=== PATIENT | female | born 1955 | race African-American/Black ===

== ENCOUNTER 2019-11-20 17:01 | IRF | payer MEDICARE, SELFPAY ==
--- NOTE | 2019-11-20 18:28 | ADMGEN ---
This patient, Irma oTrres, was admitted to [facility] Room 230-01. Patient/family oriented to hospital policies and general routines including ID bracelet, bed and alarms, visiting hours, pain management, procedures, bathroom and other care routines, personal items, smoking policy, room service/diet, and visiting hours. Valuables list has been completed. Information on how to activate the Rapid Response Team has been discussed. Patient/Family are encouraged to report perceived risks to care and to ask questions if they do not understand what they are told or what they should do.
[2019-11-20 19:22] VITALS: BP 149/83; PULSE 98; RESP 19; TEMP 37; O2SAT 94; BMI 17.2
[2019-11-20 20:22] VITALS: PULSE 88
[2019-11-20] MEDS: ACETAMINOPHEN 325 MG TABLET 650 MG PO ×2 (20:22→23:03)
[2019-11-20] MEDS: METOPROLOL TARTRATE 25 MG TABLET PO (20:22)
[2019-11-20] MEDS: GABAPENTIN 100 MG CAPSULE PO (20:22)
[2019-11-20] MEDS: SODIUM CHLORIDE 1 GM TABLET PO (20:22)
[2019-11-20] MEDS: PRAVASTATIN SODIUM 20 MG TABLET 40 MG PO (20:23)
[2019-11-20 22:00] VITALS: BP 160/83; PULSE 105; RESP 20; TEMP 36.9; O2SAT 97
[2019-11-20] MEDS: TRAMADOL HCL 50 MG TABLET PO (23:04)
--- NOTE | 2019-11-20 23:35 | PC.NURSE ---
confused, disoriented, disruptive, has attempted to get out of bed setting alarm off freq, unable to redirest, has had pain meds, now getting more agitated, telling staff to leave her alone and get oiut of room, warehouse processor notified, dr deng notified, orders for ativan im 1x only
[2019-11-21] MEDS: LORAZEPAM INJ 2 MG/ML VIAL IM (00:05)
--- NOTE | 2019-11-21 00:08 | PC.NURSE ---
ativan 2 mg im, still agitated, media reporter 1 on 1
--- NOTE | 2019-11-21 00:32 | PC.NURSE ---
calling sister alexander on phone to come get her, transport coordinator still 1 on 1, pt calmer, sitting at bedside, sister is telling pt to go to sleep
--- NOTE | 2019-11-21 01:08 | PC.NURSE ---
asleep, no distress, this rn at bedside
--- NOTE | 2019-11-21 01:57 | PC.NURSE ---
still asleep, staff at bedside for safety
--- NOTE | 2019-11-21 04:29 | PC.NURSE ---
still asleep, lab here- will come back around breakfast to draw routine cbc and bmp, staff at bedside
[2019-11-21] MEDS: ACETAMINOPHEN 325 MG TABLET 650 MG PO ×3 (05:07→17:10)
[2019-11-21 06:01] VITALS: BP 145/98; PULSE 102; RESP 18; TEMP 36.7; O2SAT 95
--- NOTE | 2019-11-21 06:13 | PC.NURSE ---
asleep, allowed lab to draw blood for testing
[2019-11-21 06:35] LABS: Basophils Absolute Auto 0.1 K/mm3 (0.0-0.1); Basophils Percent Auto 0.7 % (0.2-1.2); Eosinophils Absolute Auto 0.1 K/mm3 (0-0.3); Eosinophils Percent Auto 0.6 % (0-4.4); Hematocrit 22.2 % (37.0-47.0); Hemoglobin 7.1 g/dL (12.0-15.0); Immature Granulocyte Absolute 0.07 K/mm3 (0.00-0.031); Immature Granulocyte Percent A 0.8 % (0-0.5); Lymphocytes Absolute Auto 2.08 K/mm3 (0.9-3.2); Lymphocytes Percent Auto 24.6 % (18.3-44.2); Mean Corpuscular Hemoglobin 30.2 pg (26-34); Mean Corpuscular Volume 94.5 fl (80-100); Mean Platelet Volume 9.2 fl (7.4-10.4); Monocytes Absolute Auto 0.6 K/mm3 (0.1-0.6); Monocytes Percent Auto 6.8 % (2.6-8.5); Neutrophils Absolute Auto 5.6 K/mm3 (1.3-6.7); Neutrophils Percent Auto 66.5 % (45.5-73.1); Platelet Count Result 537 k/mm3 (150-375); Red Blood Count 2.35 M/mm3 (4.2-5.4); White Blood Count 8.4 K/mm3 (4.5-10.0)
[2019-11-21 06:40] LABS: Blood Urea Nitrogen 18 mg/dL (7-17); Carbon Dioxide 35 mmol/L (22-30); Chloride 99 mmol/L (98-107); Estimated CRCL calculation 71 ml/min; Estimated Glomerular Filt Rate > 60; Glucose 95 mg/dL (65-105); Potassium 3.1 mmol/L (3.4-5.0); Sodium 136 mmol/L (137-145)
[2019-11-21 08:00] VITALS: PULSE 90; RESP 18; O2SAT 95
--- NOTE | 2019-11-21 10:00 | WPDREHABHP ---
H&P: HPI History of Present Illness Chief complaint: BKA Narrative: Irma Torres is a 64 year old female HISTORY OF PRESENT ILLNESS: The patient's primary rehab impairment category is amputation/lower extremity The etiologic diagnosis is severe peripheral vascular disease I saw this patient [id number] on November 21, 2019 at 10:00 a.m. The patient is a 64-year-old the Afro [place] woman with a past medical history of hypertension, hyperlipidemia, tobacco use and left to right cardiac shunt who was recently hospitalized for critical limb ischemia of the right lower extremity. She underwent the right SFA and popliteal balloon angioplasty and October 31, 2019. She presented to [facility] on November 16, 2019 with worsening right foot edema, pain and skin changes. Vascular surgery was consulted and she was noted to have dry gangrene of the right foot with no secondary sign of infection aside from leukocytosis. Her aspirin Flexeril held and she was scheduled for amputation. She underwent the right [id number] amputation November 17, 2019. Postoperatively she experienced acute postoperative pain, hypertension, acute blood-loss anemia, and impaired mobility. Her postoperative pain is being treated with oral pain medication and will be adjusted meet her needs. Hypertension with oral antihypertensives, hemodynamically stable with the current hemoglobin of 8.3 however it has gone down to 7.1 here. She was receiving PT OT to improve mobility and independence with the ADLs and functional transverse. There is an incisional wound VAC to the right lower extremity stump. She is nonweightbearing to the right lower extremity DVT prophylaxis with subcutaneous heparin however it seems like that the referring hospital has discontinued the heparin prior to her coming to us. Therapy was initiated at the acute care facility and the patient transferred to us from [facility] on November 20, 2019 on FALLS OR SURGERIES: The patient has had major surgeries in the 100 days prior to admission. They had no falls in the past year. They had no falls with injury in the past year. PAST MEDICAL HISTORY: hypertension, weight loss, hyperlipidemia PAST SURGICAL HISTORY: S FA and popliteal balloon angioplasty SOCIAL HISTORY: patient is . Current everyday smoker. Occasional alcohol use. No drug use FAMILY HISTORY: father with diabetes mellitus type 2 PRIOR LEVEL OF FUNCTION: Eating was INDEPENDENT Oral Care was INDEPENDENT Toileting Hygiene was INDEPENDENT Shower/Bathing was INDEPENDENT Upper Body Dressing was INDEPENDENT Lower Body Dressing was INDEPENDENT Donning/Riggins Footwear was INDEPENDENT Rolling Left and Right was INDEPENDENT Sit to Lying was INDEPENDENT Lying to Sitting was INDEPENDENT Sit to Stand was INDEPENDENT Bed to Chair Transfers was INDEPENDENT Toilet Transfers was INDEPENDENT Walking was INDEPENDENT >500 feet with NO DEVICE Wheelchair Mobility was NOT APPLICABLE PRIOR TO ADMISSION Stairs were INDEPENDENT CURRENT LEVEL OF FUNCTION: Eating was independent Oral Care was supervision or touch assistance Toileting Hygiene was partial/moderate assistance Shower/Bathing was partial/more persistent Upper Body Dressing was supervision or touch assistance Lower Body Dressing was partial/more assistance Donning/Riggins Footwear was partial/moderate assistance Rolling Left and Right was supervision/touch assist Sit to Lying was supervision/touch assistance Lying to Sitting was partial/or assistance Sit to Stand was partial/moderate assistance Bed to Chair Transfers were partial/more assistance Toilet Transfers were partial/moderate assistance Walking was 50 feet with a rolling walker with partial/more assistance Wheelchair Mobility was not tested Stairs were not tested GOALS: Our therapists will evaluate the patient and establish the goals. However, upon pre-admission s
[2019-11-21] MEDS: CLOPIDOGREL BISULFATE 75 MG TABLET PO (10:09)
[2019-11-21] MEDS: GABAPENTIN 100 MG CAPSULE PO ×3 (10:09→17:09)
[2019-11-21 10:10] VITALS: PULSE 90
[2019-11-21] MEDS: SODIUM CHLORIDE 1 GM TABLET PO ×3 (10:10→17:09)
[2019-11-21] MEDS: METOPROLOL TARTRATE 25 MG TABLET PO ×2 (10:10→20:07)
[2019-11-21] MEDS: ASPIRIN 81 MG ENTERIC TABLET PO (10:10)
[2019-11-21] MEDS: AMLODIPINE BESYLATE 5 MG TABLET 10 MG PO (10:10)
[2019-11-21] MEDS: MEGESTROL ACETATE (*CHEMO) ORAL SUSP 40 MG/ML SYR 800 MG PO (10:11)
[2019-11-21 13:07] VITALS: BMI 17.2
[2019-11-21 14:00] VITALS: BP 158/82; PULSE 92; RESP 18; TEMP 36.6; O2SAT 98
[2019-11-21 20:07] VITALS: PULSE 99
[2019-11-21] MEDS: PRAVASTATIN SODIUM 20 MG TABLET 40 MG PO (20:08)
[2019-11-21 22:00] VITALS: BP 128/68; PULSE 99; RESP 18; TEMP 36.8; O2SAT 98
[2019-11-22] VITALS (9 sets, daily range): BP systolic 114–159; BP diastolic 56–69; PULSE 18–96; RESP 18–100; TEMP 36.2–37; O2SAT 90–100
[2019-11-22] MEDS: ACETAMINOPHEN 325 MG TABLET 650 MG PO ×4 (00:10→17:56)
[2019-11-22 05:09] LABS: Basophils Percent Auto 0.6 % (0.2-1.2); Eosinophils Absolute Auto 0.2 K/mm3 (0-0.3); Eosinophils Percent Auto 2.9 % (0-4.4); Immature Granulocyte Absolute 0.07 K/mm3 (0.00-0.031); Lymphocytes Absolute Auto 0.88 K/mm3 (0.9-3.2); Lymphocytes Percent Auto 12.8 % (18.3-44.2); Mean Corpuscular HGB Conc 32.7 g/dl (32-36); Mean Corpuscular Hemoglobin 30.6 pg (26-34); Mean Corpuscular Volume 93.6 fl (80-100); Mean Platelet Volume 8.8 fl (7.4-10.4); Monocytes Absolute Auto 0.6 K/mm3 (0.1-0.6); Neutrophils Absolute Auto 5.1 K/mm3 (1.3-6.7); Neutrophils Percent Auto 74.7 % (45.5-73.1); Platelet Count Result 509 k/mm3 (150-375); Red Blood Count 2.19 M/mm3 (4.2-5.4); Red Cell Distribution Width 15.5 % (11.5-14.5); White Blood Count 6.9 K/mm3 (4.5-10.0)
[2019-11-22 05:31] LABS: Hematocrit 20.5 % (37.0-47.0); Hemoglobin 6.7 g/dL (12.0-15.0)
[2019-11-22] MEDS: SODIUM CHLORIDE 1 GM TABLET PO ×3 (10:01→17:56)
[2019-11-22] MEDS: AMLODIPINE BESYLATE 5 MG TABLET 10 MG PO (10:01)
[2019-11-22] MEDS: ASPIRIN 81 MG ENTERIC TABLET PO (10:01)
[2019-11-22] MEDS: GABAPENTIN 100 MG CAPSULE PO ×3 (10:02→17:56)
[2019-11-22] MEDS: MEGESTROL ACETATE (*CHEMO) ORAL SUSP 40 MG/ML SYR 800 MG PO (10:02)
[2019-11-22] MEDS: METOPROLOL TARTRATE 25 MG TABLET PO ×2 (10:02→20:11)
[2019-11-22] MEDS: CLOPIDOGREL BISULFATE 75 MG TABLET PO (10:02)
[2019-11-22] MEDS: SODIUM CHLORIDE 0.9% IV 250 ML 30 ML IV CONT (11:35)
--- NOTE | 2019-11-22 12:59 | WPDNEURORHBP ---
Subjective Date/time seen: 11/22/19 12:59 Interval history: this 64-year-old Afro-Anguillan woman is here after having had right [id number]-[id number] amputation for significant peripheral vascular disease system taveras she is doing fairly well denies any headache nausea vomiting chest pain shortness of breath however her hemoglobin has dropped a below 7 and the I have requested a 1 pack of RBCs for her to be given today labs were reviewed and will continue rest of the management Functional Status Ambulation Ability Ability to Ambulate 10 Feet: Contact Guard Ability to Ambulate 50 Feet With 2 Turns: Contact Guard Ambulation Assistive Devices: Walker, Standard Transfers Ability Ability to Transfer In/Out of Chair: Standby Assistance Exam Const: General: comfortable and no acute distress HENMT: General nose exam: Normal nares present Mouth: Yes moist mucous membranes Eyes: General: appearance normal, both eyes and all related structures Neck: Neck: supple and no JVD Resp: Effort & Inspection: normal respiratory effort Auscultation: clear to auscultation bilaterally Cardio: Rate: regular rate Rhythm: regular rhythm GI: GI Palp: Yes Soft to palpation Auscultation: normal bowel sounds Skin: General skin exam: normal color and no rashes or lesions noted Neuro: Other: patient's mental status exam is normal cranial exam shows normal strength general is decreased the right lower extremity [id number] amputation is clean notes significant drainage is noted she is able to engage in therapy and doing fairly well of course with the limitation of the recent amputation Extrem: Other: right BKA is clean Psych: Mental Status: mental status grossly normal Objective Data Vital Signs Vital Signs: Vital Signs - 24 hr 11/21/19 14:00 11/21/19 20:07 11/21/19 22:00 Temperature 36.6 C 36.8 C Pulse Rate 92 99 99 Respiratory Rate 18 18 Blood Pressure 158/82 H 128/68 Pulse Oximetry 98 98 11/22/19 06:00 11/22/19 10:02 11/22/19 11:31 Temperature 37.0 C 36.4 C Pulse Rate 96 92 90 Respiratory Rate 18 18 Blood Pressure 159/65 H 114/56 L Pulse Oximetry 93 100 11/22/19 11:46 Temperature 36.6 C Pulse Rate 81 Respiratory Rate 18 Blood Pressure 124/63 Pulse Oximetry 98 Intake/Output Intake/Output: Intake & Output 03/3011/20/19 11/21/19 11/22/19 23:59 23:59 23:59 23:59 Intake Total 120 840 240 Balance 120 840 240 Meds/Results Medications: Active Medications Generic Name Dose Route Start Last Admin Trade Name Freq PRN Reason Stop Dose Admin Acetaminophen 650 mg 11/20/19 18:55 11/22/19 06:57 Tylenol Tablet PO 650 mg Q6HR PETERSON Administration Amlodipine Besylate 10 mg 11/21/19 09:00 11/22/19 10:01 Norvasc PO 10 mg DAILY PETERSON Administration Aspirin 81 mg 11/21/19 09:00 11/22/19 10:01 Aspirin Ec PO 81 mg DAILY PETERSON Administration Clopidogrel Bisulfate 75 mg 11/21/19 09:00 11/22/19 10:02 Plavix PO 75 mg DAILY PETERSON Administration Gabapentin 100 mg 11/20/19 17:00 11/22/19 10:02 Neurontin PO 100 mg TID PETERSON Administration Sodium Chloride 250 mls @ 30 mls/hr 11/22/19 05:55 Normal Saline Iv IV CONT 11/22/19 14:14 .Q8H20M STA Megestrol Acetate 800 mg 11/21/19 09:00 11/22/19 10:02 Megace Oral Susp PO 12/21/19 09:01 800 mg DAILY PETERSON Administration Metoprolol Tartrate 25 mg 11/20/19 21:00 11/22/19 10:02 Lopressor PO 25 mg Q12HR PETERSON Administration Polyethylene Glycol 17 gm 11/20/19 18:51 Miralax PO DAILY PRN Constipation Pravastatin Sodium 40 mg 11/20/19 21:00 11/21/19 20:08 Pravastatin Sodium PO 40 mg HS PETERSON Administration Sodium Chloride 1 gm 11/20/19 17:00 11/22/19 10:01 Sodium Chloride PO 1 gm TIDWM PETERSON Administration Tramadol HCl 50 mg 11/20/19 18:51 11/20/19 23:04 Ultram PO 50 mg Q6H PRN Administration Pain 4-6 Labs Labs: Laboratory Results - last 24 h
--- NOTE | 2019-11-22 15:24 | PCPTNOTE ---
Liliana Asencio, PT completed an inpatient rehab wheelchair evaluation on Irma Torres on 11/22/2019. The patient is unable to safely and independently ambulate household distances due to their current impairments. Their diagnosis is BKA and their impairments include decreased strength, decreased endurance, decreased range of motion, decreased balance, lower extremity weakness, and ataxia. Irma's weight bearing status is non weight-bearing on the right lower leg. The patient demonstrates significant functional mobility limitations that impair their ability to participate in mobility-related activities of daily living (MRADLs), including toileting, feeding, dressing, grooming, and bathing in the customary locations in the home. These limitations cannot be sufficiently resolved by the use of an appropriately fitted cane or walker. It is recommended that the patient utilize a wheelchair for functional mobility within the home in order to facilitate optimal safety, independence and participation in all MRADL's and adequately access their home environment on a regular basis. The patient's home provides adequate access between rooms, maneuvering space, and surfaces to accommodate the recommended wheelchair. The use of a wheelchair for functional mobility is strongly recommended and the patient is receptive to using the wheelchair. The use of this wheelchair will significantly improve the patient's ability to participate in MRADLS and the patient will use it on a regular basis in the home. This will facilitate optimal safety, independence, and participation. The patient has demonstrated sufficient physical and mental capabilities needed to safely propel a manual wheelchair that is provided in the home during a typical day. Recommended Wheelchair Frame: standard Recommended Wheelchair Size: 18'h x 18 w Recommended Wheelchair Cushion: Wheelchair Leg Recommendations: elevating and removable legrests - Elevating legrests are recommended because the patient has significant edema of the right lower extremity that requires an elevating legrest. -Anti-tippers are recommended due to patient demonstrating increased risk for falls. They would benefit from anti-tippers with added safety and stabilization. Liliana Asencio PT 11/22/19____ Evaluating Therapist Date I agree with and certify that the above recommendation is medically necessary. Referring Physician Date I agree with and certify that the above recommendation is medically necessary. Referring Physician Date
[2019-11-22] MEDS: PRAVASTATIN SODIUM 20 MG TABLET 40 MG PO (20:11)
[2019-11-23] MEDS: ACETAMINOPHEN 325 MG TABLET 650 MG PO ×4 (00:26→17:26)
[2019-11-23 04:40] LABS: Hematocrit 25.1 % (37.0-47.0)
[2019-11-23 06:00] VITALS: BP 127/66; PULSE 88; RESP 18; TEMP 36.3; O2SAT 100
[2019-11-23] MEDS: GABAPENTIN 100 MG CAPSULE PO ×3 (08:28→17:26)
[2019-11-23] MEDS: SODIUM CHLORIDE 1 GM TABLET PO ×3 (08:28→17:26)
[2019-11-23] MEDS: MEGESTROL ACETATE (*CHEMO) ORAL SUSP 40 MG/ML SYR 800 MG PO (08:28)
[2019-11-23] MEDS: CLOPIDOGREL BISULFATE 75 MG TABLET PO (08:28)
[2019-11-23] MEDS: AMLODIPINE BESYLATE 5 MG TABLET 10 MG PO (08:28)
[2019-11-23 08:29] VITALS: PULSE 88
[2019-11-23] MEDS: METOPROLOL TARTRATE 25 MG TABLET PO ×2 (08:29→20:04)
[2019-11-23] MEDS: ASPIRIN 81 MG ENTERIC TABLET PO (08:29)
--- NOTE | 2019-11-23 10:52 | RPD ---
INDIVIDUALIZED PLAN OF CARE FOR Irma Torres Brief Synthesis of Pre-Admission Screen, Post-Admission Evaluation and Therapy Evaluations: The patient presents to rehab with severe peripheral vascular disease. Comorbidities include status post right below-knee amputation, acute postoperative pain, acute blood loss anemia, hypertension, weight loss. The patient requires physician services for medical oversight, management of post-op complications in the setting of present comorbidities, management of current medical conditions, and pain management. Post-op complications have included acute postoperative pain and acute blood loss anemia. The patient requires nursing services for anticoagulation therapy, DVT prophylactics, infection protection, medication management and education, pressure relief, and wound care. Deficits include:ADLs, Balance, Endurance, Family Training/Education, Mobility, Pain Management, ROM, Safety, Strength, Transfers Consultant Nurse/Case Management for: Discharge Planning and Patient/Family Counseling Physical Therapy: 5 days per week for 90 minutes. Treatments may include: Therapeutic Exercise, Gait Training, Neuromuscular Re-education, Transfer Training, Community Reintegration, Bed Mobility, Patient/Family Education, Wheelchair Mobility Group Therapy/Concurrent Therapy Rationales: -Improve attention span during functional activities in a distracted environment. -Enhance problem solving and/or adequate judgment skills during functional activities in a distracted environment. -Promote increased safety awareness in a distracted environment to reduce fall risk with functional tasks, transfers, and ambulation to allow a more safe, self-sufficient return to the home environment. -Improve dynamic balance skills to promote safety and independence with functional activities in a distracted environment for maximum gain. Occupational Therapy: 5 days per week for 90 minutes. Treatments may include: Therapeutic Exercise, Therapeutic Activity, Cognitive Training, Self-Care Transfer Training, Community Reintegration, Home Management, Patient/Family Education, Wheelchair Mobility Training, Energy Conservation Training Group Therapy/Concurrent Therapy Rationales: -Allow therapist to observe and teach generalization and carry-over of skills learned in individual therapy. -Enhance problem solving and sequencing skills during therapeutic activities in a distracted environment. -Promote increased safety awareness in a realistic setting to reduce fall risk with functional tasks due to visual and verbal distractions. -Increase functional level with ADLs, ADL transfers and use of adaptive equipment through therapeutic activities with others while promoting safety to allow a more safe, self-sufficient return home. Medical Prognosis: Good Anticipated Length of Stay: 12 days Rehab Goals: Eating Goal: 06-Independent Oral Hygiene Goal: 06-Independent Toileting Hygiene Goal: 06-Independent Shower/Bathe Self Goal: 06-Independent Upper Body Dressing Goal: 06-Independent Lower Body Dressing Goal: 06-Independent Putting On/Taking Off Footwear Goal: 06-Independent Rolling Left and Right Goal: 06-Independent Sit to Lying Goal: 06-Independent Lying to Sitting on Side of Bed Goal: 06-Independent Sit to Stand Goal: 06-Independent Chair/Aom-kh-Aeywu Transfer Goal: 06-Independent Toilet Transfer Goal: 06-Independent Car Transfer Goal: 06-Independent Walk 10' Goal: 06-Independent Walk 50' with Two Turns Goal: 06-Independent Walk 150' Goal: 06-Independent Walk 10' on Uneven Surface Goal: 06-Independent 1 Step (Curb) Goal: 04-Supervision or Touching Assistance 4 Steps Goal: 04-Supervision or Touching Assistance 12 Steps Goal Score: 09-Not Applicable Picking Up Object Goal: 06-Independent Wheel 50' with Two Turns Score: 06-Independent Wheel 150' Goal: 06-Independent Anticipated discharge destination: Home
[2019-11-23] MEDS: POTASSIUM CHLORIDE 20 MEQ TABLET 40 MEQ PO (11:55)
--- NOTE | 2019-11-23 12:31 | WPDNEURORHBP ---
Subjective Date/time seen: 11/23/19 12:31 Interval history: this 64-year-old Afro-[place]guillan woman is here post right unpxz-dqp-bvxe amputation she had blood-loss anemia yesterday and received 1 packed of RBCs which has boosted hemoglobin to above 8 she is also on a low on her potassium at 3.1 so I will give her 40 of potassium recheck the BMP next week discharge planning was discussed in the team conference in the presence of the pattern maker programerrooms director therapy the nursing and the physical therapy she will need the home health PT OT RN and the bath aide Review of Systems Review of Systems: All systems reviewed & are unremarkable except as noted in HPI and below Functional Status Ambulation Ability Ability to Ambulate 10 Feet: Independent Ability to Ambulate 50 Feet With 2 Turns: Independent Ambulation Assistive Devices: Walker, Wheeled Transfers Ability Ability to Transfer In/Out of Chair: Independent Exam Const: General: comfortable and no acute distress HENMT: General nose exam: Normal nares present Mouth: Yes moist mucous membranes Eyes: General: appearance normal, both eyes and all related structures Neck: Neck: supple and no JVD Resp: Effort & Inspection: normal respiratory effort Auscultation: clear to auscultation bilaterally Cardio: Rate: regular rate Rhythm: regular rhythm GI: GI Palp: Yes Soft to palpation Auscultation: normal bowel sounds Skin: General skin exam: normal color and no rashes or lesions noted Neuro: Other: the mental status is normal, cranial some shows normal her ability to ambulate with the right tjmoa-deg-hbea amputation has been improving evidence of the peripheral vascular disease and the peripheral neuropathy remains stable Extrem: General: normal to inspection Other: on right ixvie-soa-zcmc amputation is clean Psych: Mental Status: mental status grossly normal Objective Data Vital Signs Vital Signs: Vital Signs - 24 hr 11/22/19 12:45 11/22/19 13:45 11/22/19 14:00 Temperature 36.5 C 36.3 C L 36.2 C L Pulse Rate 87 18 L 78 Respiratory Rate 18 100 H 20 Blood Pressure 121/69 129/65 126/68 Pulse Oximetry 95 90 97 11/22/19 20:11 11/22/19 22:00 11/23/19 06:00 Temperature 36.9 C 36.3 C L Pulse Rate 80 96 88 Respiratory Rate 20 18 Blood Pressure 116/66 127/66 Pulse Oximetry 99 100 04/03/20 08:29 Temperature Pulse Rate 88 Respiratory Rate Blood Pressure Pulse Oximetry Intake/Output Intake/Output: Intake & Output 11/20/19 11/21/19 11/22/19 11/23/19 23:59 23:59 23:59 23:59 Intake Total 405 268 7272 240 Balance 361 087 9090 240 Meds/Results Medications: Active Medications Generic Name Dose Route Start Last Admin Trade Name Rogerq PRN Reason Stop Dose Admin Acetaminophen 650 mg 11/20/19 18:55 11/23/19 11:56 Tylenol Tablet PO 650 mg Q6HR PETERSON Administration Amlodipine Besylate 10 mg 11/21/19 09:00 11/23/19 08:28 Norvasc PO 10 mg DAILY PETERSON Administration Aspirin 81 mg 11/21/19 09:00 11/23/19 08:29 Aspirin Ec PO 81 mg DAILY PETERSON Administration Clopidogrel Bisulfate 75 mg 11/21/19 09:00 11/23/19 08:28 Plavix PO 75 mg DAILY PETERSON Administration Gabapentin 100 mg 11/20/19 17:00 11/23/19 12:01 Neurontin PO 100 mg TID PETERSON Administration Megestrol Acetate 800 mg 11/21/19 09:00 11/23/19 08:28 Megace Oral Susp PO 12/21/19 09:01 800 mg DAILY PETERSON Administration Metoprolol Tartrate 25 mg 11/20/19 21:00 11/23/19 08:29 Lopressor PO 25 mg Q12HR PETERSON Administration Polyethylene Glycol 17 gm 11/20/19 18:51 Miralax PO DAILY PRN Constipation Pravastatin Sodium 40 mg 11/20/19 21:00 11/22/19 20:11 Pravastatin Sodium PO 40 mg HS PETERSON Administration Sodium Chloride 1 gm 11/20/19 17:00 11/23/19 11:55 Sodium Chloride PO 1 gm TIDWM PETERSON Administration Tramadol HCl 50 mg 11/20/19 18:51 11/20/19 23:04 Ultram PO 50 mg Q6H PRN Admini
[2019-11-23 14:00] VITALS: BP 120/60; PULSE 78; RESP 18; TEMP 36.4; O2SAT 100
[2019-11-23 20:04] VITALS: PULSE 92
[2019-11-23] MEDS: PRAVASTATIN SODIUM 20 MG TABLET 40 MG PO (20:04)
[2019-11-23 22:00] VITALS: BP 114/60; PULSE 92; RESP 18; TEMP 36.6; O2SAT 100
[2019-11-24] MEDS: ACETAMINOPHEN 325 MG TABLET 650 MG PO ×4 (00:58→18:21)
[2019-11-24 05:05] LABS: Potassium 3.6 mmol/L (3.4-5.0)
[2019-11-24] MEDS: polyethylene glycoL 3350 17 GM POWD.PACK PO ×2 (05:18→20:06)
[2019-11-24 06:00] VITALS: BP 134/61; PULSE 92; RESP 18; TEMP 36.9; O2SAT 98
[2019-11-24 09:45] VITALS: PULSE 88
[2019-11-24] MEDS: METOPROLOL TARTRATE 25 MG TABLET PO ×2 (09:45→20:01)
[2019-11-24] MEDS: ASPIRIN 81 MG ENTERIC TABLET PO (09:45)
[2019-11-24] MEDS: MEGESTROL ACETATE (*CHEMO) ORAL SUSP 40 MG/ML SYR 800 MG PO (09:45)
[2019-11-24] MEDS: CLOPIDOGREL BISULFATE 75 MG TABLET PO (09:45)
[2019-11-24] MEDS: AMLODIPINE BESYLATE 5 MG TABLET 10 MG PO (09:45)
[2019-11-24] MEDS: SODIUM CHLORIDE 1 GM TABLET PO ×3 (09:46→18:20)
[2019-11-24] MEDS: GABAPENTIN 100 MG CAPSULE PO ×3 (09:46→18:20)
[2019-11-24 12:00] VITALS: PULSE 88; RESP 18
[2019-11-24 14:38] VITALS: BP 123/57; PULSE 88; RESP 16; TEMP 37.1; O2SAT 100
[2019-11-24 20:01] VITALS: PULSE 92
[2019-11-24] MEDS: PRAVASTATIN SODIUM 20 MG TABLET 40 MG PO (20:02)
[2019-11-24 22:00] VITALS: BP 146/75; PULSE 89; RESP 18; TEMP 36.6; O2SAT 100
[2019-11-25] MEDS: ACETAMINOPHEN 325 MG TABLET 650 MG PO ×5 (00:27→23:10)
[2019-11-25 06:00] VITALS: BP 162/77; PULSE 87; RESP 17; TEMP 36.9; O2SAT 100
[2019-11-25 09:15] VITALS: PULSE 84
[2019-11-25] MEDS: METOPROLOL TARTRATE 25 MG TABLET PO ×2 (09:15→20:00)
[2019-11-25] MEDS: CLOPIDOGREL BISULFATE 75 MG TABLET PO (09:15)
[2019-11-25] MEDS: AMLODIPINE BESYLATE 5 MG TABLET 10 MG PO (09:15)
[2019-11-25] MEDS: MEGESTROL ACETATE (*CHEMO) ORAL SUSP 40 MG/ML SYR 800 MG PO (09:16)
[2019-11-25] MEDS: ASPIRIN 81 MG ENTERIC TABLET PO (09:16)
[2019-11-25] MEDS: SODIUM CHLORIDE 1 GM TABLET PO ×3 (09:16→17:07)
[2019-11-25] MEDS: GABAPENTIN 100 MG CAPSULE PO ×3 (09:16→17:07)
[2019-11-25 09:57] VITALS: PULSE 84; RESP 17
[2019-11-25 14:00] VITALS: BP 105/53; PULSE 87; RESP 16; TEMP 36.2; O2SAT 100
--- NOTE | 2019-11-25 16:26 | WPDNEURORHBP ---
Subjective Date/time seen: 11/25/19 16:26 Interval history: this 64-year-old woman is here after having had right jfscn-[id number]-vmoc amputation because of significant peripheral vascular disease she has done well in the rehab and planning to be discharged tomorrow with instructions to follow up with the surgeon her stump looks clean no significant drainage is noted and she denies any fever chills sore throat headache nausea vomiting after receiving the bladder hemoglobin is about 8 Review of Systems Review of Systems: All systems reviewed & are unremarkable except as noted in HPI and below Functional Status Ambulation Ability Ability to Ambulate 10 Feet: Independent Ability to Ambulate 50 Feet With 2 Turns: Independent Ambulation Assistive Devices: Walker, Wheeled Transfers Ability Ability to Transfer In/Out of Chair: Standby Assistance Exam Const: General: comfortable and no acute distress HENMT: General nose exam: Normal nares present Mouth: Yes moist mucous membranes Eyes: General: appearance normal, both eyes and all related structures Neck: Neck: supple and no JVD Resp: Effort & Inspection: normal respiratory effort Auscultation: clear to auscultation bilaterally Cardio: Rate: regular rate Rhythm: regular rhythm GI: GI Palp: Yes Soft to palpation Auscultation: normal bowel sounds Skin: General skin exam: normal color and no rashes or lesions noted Neuro: Other: patient remains awake and alert little forgetful which is her baseline with normal speech and language function normal cranial examination normal upper extremity strength and improved to a significant degree the lower extremity strength and the stump is clean Extrem: Other: right BKA clean Psych: Mental Status: mental status grossly normal Objective Data Vital Signs Vital Signs: Vital Signs - 24 hr 11/24/19 20:01 11/24/19 22:00 11/25/19 06:00 Temperature 36.6 C 36.9 C Pulse Rate 92 89 87 Respiratory Rate 18 17 Blood Pressure 146/75 H 162/77 H Pulse Oximetry 100 100 11/25/19 09:15 11/25/19 09:57 11/25/19 14:00 Temperature 36.2 C L Pulse Rate 84 84 87 Respiratory Rate 17 16 Blood Pressure 105/53 L Pulse Oximetry 100 Intake/Output Intake/Output: Intake & Output 11/22/19 11/23/19 11/24/19 11/25/19 23:59 23:59 23:59 23:59 Intake Total 1070 950 720 480 Balance 1070 950 720 480 Meds/Results Medications: Active Medications Generic Name Dose Route Start Last Admin Trade Name Freq PRN Reason Stop Dose Admin Acetaminophen 650 mg 11/20/19 18:55 11/25/19 13:06 Tylenol Tablet PO 650 mg Q6HR PETERSON Administration Amlodipine Besylate 10 mg 11/21/19 09:00 11/25/19 09:15 Norvasc PO 10 mg DAILY PETERSON Administration Aspirin 81 mg 11/21/19 09:00 11/25/19 09:16 Aspirin Ec PO 81 mg DAILY PETERSON Administration Clopidogrel Bisulfate 75 mg 11/21/19 09:00 11/25/19 09:15 Plavix PO 75 mg DAILY PETERSON Administration Gabapentin 100 mg 11/20/19 17:00 11/25/19 13:06 Neurontin PO 100 mg TID PETERSON Administration Megestrol Acetate 800 mg 11/21/19 09:00 11/25/19 09:16 Megace Oral Susp PO 12/21/19 09:01 800 mg DAILY PETERSON Administration Metoprolol Tartrate 25 mg 11/20/19 21:00 11/25/19 09:15 Lopressor PO 25 mg Q12HR PETERSON Administration Polyethylene Glycol 17 gm 11/20/19 18:51 11/24/19 20:06 Miralax PO 17 gm DAILY PRN Administration Constipation Pravastatin Sodium 40 mg 11/20/19 21:00 11/24/19 20:02 Pravastatin Sodium PO 40 mg HS PETERSON Administration Sodium Chloride 1 gm 11/20/19 17:00 11/25/19 13:06 Sodium Chloride PO 1 gm TIDWM PETERSON Administration Tramadol HCl 50 mg 11/20/19 18:51 11/20/19 23:04 Ultram PO 50 mg Q6H PRN Administration Pain 4-6 Progress Note: A&P Assessment and Plan (1) Acute blood loss anemia: Code(s): D62 - Acute posthemorrhagic anemia Status: Acute (2) Hypertension:
[2019-11-25 20:00] VITALS: PULSE 90
[2019-11-25] MEDS: PRAVASTATIN SODIUM 20 MG TABLET 40 MG PO (20:00)
[2019-11-25 21:12] VITALS: BP 128/58; PULSE 87; RESP 16; TEMP 36.6; O2SAT 99
[2019-11-26 06:00] VITALS: BP 151/72; PULSE 93; RESP 20; TEMP 36.4; O2SAT 100
[2019-11-26] MEDS: ACETAMINOPHEN 325 MG TABLET 650 MG PO ×2 (06:14→12:27)
[2019-11-26] MEDS: MEGESTROL ACETATE (*CHEMO) ORAL SUSP 40 MG/ML SYR 800 MG PO (08:21)
[2019-11-26 08:22] VITALS: PULSE 93
[2019-11-26] MEDS: ASPIRIN 81 MG ENTERIC TABLET PO (08:22)
[2019-11-26] MEDS: CLOPIDOGREL BISULFATE 75 MG TABLET PO (08:22)
[2019-11-26] MEDS: GABAPENTIN 100 MG CAPSULE PO ×2 (08:22→12:27)
[2019-11-26] MEDS: AMLODIPINE BESYLATE 5 MG TABLET 10 MG PO (08:22)
[2019-11-26] MEDS: SODIUM CHLORIDE 1 GM TABLET PO ×2 (08:22→12:27)
[2019-11-26] MEDS: METOPROLOL TARTRATE 25 MG TABLET PO (08:22)
--- NOTE | 2019-11-26 12:48 | PCDIET ---
Nutrition Follow-Up Complete: Nutrition Diagnosis: Underweight related to inadequate kcal intake prior to admission as evidenced by patient below ideal body weight range after adjusting for amputation. Nutrition Goal: Patient to consume 50% of meals/supplements or more Goal met. Intakes variable at first, but patient has consumed 80-100% of most meals over the past few days. Agree with regular diet and Thrive Ice Cream BID to promote weight gain. Last recorded weight is 48.6 kg. Recommend obtaining new weight. Bowel Motility: Last documented BM on 11/24/19. Labs Reviewed: Hgb (8.0), Hct (25.1) - improved Meds Noted: Megace, Sodium Chloride tabs Additional Notes: Right lower leg incision; no pressure sores documented. Will continue to monitor with same goal. Nutrition Monitoring and Evaluation: Follow up in 5 days.
--- NOTE | 2019-11-29 11:39 | DS_ITS ---
DATE OF DISCHARGE: 11/26/2019 DISCHARGE ACUTE REHAB DIAGNOSIS: Amputation/lower extremity with etiological diagnosis of severe peripheral vascular disease. DISCHARGE ACTIVE COMORBID CONDITIONS: 1. Hypertension. 2. Hyperlipidemia. 3. Uoyk-lp-ayhpy cardiac shunt. REASON FOR ADMISSION: A 64-year-old right-handed female with history of comorbid condition as mentioned above in addition to tobacco abuse, was hospitalized for critical limb ischemia of the right lower extremity. She underwent right SFA to popliteal balloon angioplasty on 10/31/2019. She presented to [facility] on 11/16/2019, with worsening right foot edema with pain and discoloration of skin. Vascular Surgery was consulted and she was noted to have dry gangrene of the right foot with no secondary signs of infection. She was noted to have leukocytosis on the CBC. Her medications such as aspirin and Flexeril were held and she was scheduled for the amputation. She underwent right [id number]-kwd-rtaz amputation on 11/17/2019. Postoperatively, she complained of pain, became anemic, and difficulties in mobilizing. Her postoperative pain was treated with oral pain medication, which was being adjusted accordingly. She received antihypertensive medication for the hypertension and she was noted to have hemoglobin of 8.3, though it went down to 7.1. She was started on physical therapy and occupational therapy on the floor with the incisional wound VAC to the right lower extremity stump, but by the time she was transferred here, she was nonweightbearing to the right lower extremity, had the subcutaneous heparin for the DVT prophylaxis which was discontinued prior to coming to this hospital. Therapy was instituted on the acute care facility. LEVEL OF FUNCTION AT THE TIME OF ADMISSION: She required setup for eating and oral hygiene. Supervision for toileting and bathing, setup for upper body dressing, supervision for lower body dressing, set up for the footwear. She was independent for rolling in bed, sit to lying, lying to sitting. She required supervision for sit to stand, chair transfer, toilet transfer, car transfer, walking 10 feet, and walking 50 feet with 2 turns as well. She was unable to walk for 150 feet. She required supervision for walking 10 feet on uneven surfaces and required partial assistance for curb or step, 4 steps, 12 steps, and she was unable to walk 12 steps, but she was required partial assistance for picking up object. She was independent for the wheelchair for 50 feet, but was unable to take wheelchair for 150 feet. ANTICIPATED REHAB GOALS AT THE TIME OF ADMISSION: To make her independent in all the modalities except requiring supervision for the curb or step and 4 steps, substantial assistance for 12 steps. LEVEL OF FUNCTION AT THE TIME OF DISCHARGE: She became independent in most of the modalities except she required supervision for toileting, bathing, 10 feet walking, 50 feet walking with 2 turns, and she was unable to walk 150 feet. She required supervision for 10 feet on uneven surfaces walking and partial assistance for the curb or step, 4 steps, and picking up object. She was unable to take 12 steps. Rest of the modalities, she became independent. HOSPITAL COURSE: During the hospitalization, she was not seen by any other hospital medical device sales consultant. She remained stable. At the time of discharge, she was able to ambulate 10 feet independently with a wheel walker, 50 feet with 2 turns independently with a wheel walker, transfer in and out of chair with standby assistance. General physical examination was stable. Neuro examination is stable and she was notedly afebrile. DISCHARGE INSTRUCTION: May shower. No driving. DISCHARGE MEDICATIONS: As follows, 1. 650 mg of Tylenol q.6 hours p.r.n. 2. Amlod
== END 2019-11-26 13:30 | disposition home health service (06) | DRG 560 ==
PROVIDERS: Admitting Provider Psychiatry & Neurology Neurology; Visit Provider Psychiatry & Neurology Neurology
DX: Z47.81 Encounter for orthopedic aftercare following surgical amputation (principal); D62 Acute posthemorrhagic anemia; Z89.511 Acquired absence of right leg below knee; E78.5 Hyperlipidemia, unspecified; G62.9 Polyneuropathy, unspecified; I73.9 Peripheral vascular disease, unspecified; I10 Essential (primary) hypertension; Z87.891 Personal history of nicotine dependence; Z95.9 Presence of cardiac and vascular implant and graft, unspecified; Z79.82 Long term (current) use of aspirin; Z79.02 Long term (current) use of antithrombotics/antiplatelets
CPT/HCPCS: 36415; 36430; 80048; 84132; 85014; 85018; 85025; 86850; 86900; 86901; 86923; 96125; 97110; 97116; 97162; 97165; 97530; 97535; A9270; J2060; J7050; P9016